=== PATIENT | female | born 1975 | race Caucasian/White ===

== ENCOUNTER → 2018-09-11 11:45 | Outpatient (CLI) | payer OTHER, MEDICAID, SELFPAY ==
[2018-09-11 13:31] LABS: Add Manual Diff / Slide Review NO; Basophils Percent Auto 0.7 % (0-2); Eosinophils Percent Auto 1.6 % (2-4); Hemoglobin 9.8 g/dL (12.0-16.0); Lymphocytes Percent Auto 17.6 % (25-40); Mean Corpuscular HGB Conc 32.6 % (30-36); Mean Corpuscular Hemoglobin 27.1 PG (26-34); Mean Corpuscular Volume 83.4 fL (80-100); Monocytes Percent Auto 5.7 % (3-14); Neutrophils Absolute Auto 8200 /uL (3000-5900); Neutrophils Percent Auto 74.4 % (50-75); Platelet Count 523 X10^3/uL (150-400); Red Cell Distribution Width 16.3 % (11.6-14.8)
[2018-09-11 13:34] LABS: Appearance Urine UA SL CLOUDY; Bilirubin Urine UA NEGATIVE (NEGATIVE); Color Urine UA YELLOW; Glucose Urine UA NEGATIVE (Normal); Ketones Urine UA TRACE (NEGATIVE); Leukocyte Esterase Urine UA NEGATIVE (NEGATIVE); Nitrite Urine UA NEGATIVE (Negative); Occult Blood Urine UA 2+ (Negative); Protein Urine UA TRACE (Negative); Specific Gravity Urine UA 1.025 (1.000-1.035); Urobilinogen Urine UA 0.2 E.U./dL (0.2); pH Urine UA 5.5 (4.5-8.0)
[2018-09-11 13:42] LABS: RBC Urine 5-10/HPF (0-5/HPF); Squamous Epithelial Cell Urine 1-5 /HPF; WBC Urine 1-5/HPF (0-5/HPF)
[2018-09-11 13:43] LABS: Bacteria Urine Few (2-10); Mucus Urine 2+ (Negative); Transitional Epi Cells Urine 0-1/HPF (0-5/HPF)
[2018-09-11 13:55] LABS: C-Reactive Protein Quant 7.9 mg/dL (<1.0); Creatine Kinase < 20 U/L (30-135); Uric Acid 3.9 mg/dL (2.5-6.2)
[2018-09-11 14:35] LABS: Alanine Aminotransferase 19 IU/L (9-52); Albumin 3.9 g/dL (3.5-5.0); Albumin Globulin Ratio 0.8 (1.0-2.8); Alkaline Phosphatase 145 U/L (38-126); Aspartate Aminotransferase 17 IU/L (14-36); BUN Creatinine Ratio 18.6 (6-22); Bilirubin Total 0.5 mg/dL (0.2-1.3); Blood Urea Nitrogen 13 mg/dL (7-17); Calcium 9.8 mg/dL (8.4-10.2); Carbon Dioxide 28 mmol/L (22-32); Chloride 97 mmol/L (98-107); Estimated Glomerular Filt Rate > 60.0 mL/min (>60); Globulin 5.1 g/dL (1.7-4.1); Glucose 91 mg/dL (70-100); HEMOLYSIS < 15 (0-50); Potassium 4.2 mmol/L (3.4-5.1); Sodium 142 mmol/L (137-145)
[2018-09-13 17:07] LABS: Myoglobin Quantitative Urine < 28 mcg/L (< 28)
== END ==
PROVIDERS: Family Medicine; Visit Provider Physician Assistant Medical
DX: R52 Pain, unspecified (principal); R07.9 Chest pain, unspecified; M62.830 Muscle spasm of back
CPT/HCPCS: 36415; 80053; 81001; 82550; 83874; 84100; 84550; 85025; 86140

== ENCOUNTER 2019-12-30 17:06 | Emergency (ER) | payer OTHER, MEDICAID, SELFPAY ==
[2019-12-30 17:10] VITALS: BP 130/87; PULSE 100; RESP 16; TEMP 36.7; O2SAT 100; BMI 25.7
--- NOTE | 2019-12-30 17:17 | DI.RAD.S_ITS ---
PROCEDURE: XR HIP W PEL IF DONE RT 2V INDICATIONS: hit right hip with door, has had hip replaced TECHNIQUE: AP pelvis and lateral view of the right hip acquired. COMPARISON: None. FINDINGS: Bones: Patient is status post right hip arthroplasty, with hardware components in expected positions. The hip joint appears congruent. The visualized bony structures appear intact. Soft tissues: Overlying postoperative changes are noted. No suspicious soft tissue densities. IMPRESSION: Expected appearance of right hip arthroplasty. Dictated by: Valerie Longoria M.D. on 12/30/2019 at 16:29 Approved by: Valerie Longoria M.D. on 12/30/2019 at 16:30
--- NOTE | 2019-12-30 19:58 | ED.LOWEXIN ---
HPI - Extremity Injury (Lower) <MARKEL Johnson - Last Filed: 12/30/19 23:53> General Chief Complaint: Extremity Injury, Lower Stated Complaint: right hip pain Time Seen by Provider: 12/30/19 19:48 Mode of arrival: Ambulatory Related Data Previous Rx's Medication Instructions Recorded doxycycline hyclate 100 mg PO BID 10 Days #20 tab 12/30/19 Allergies Allergy/AdvReac Type Severity Reaction Status Date / Time prednisone Allergy Severe Muscle Pain Verified 12/30/19 17:16 Patient History <MARKEL Johnson - Last Filed: 12/30/19 23:53> Medical History Deficient knowledge of open reduction and internal (ORIF) fixation of hip (Acute) History of intravenous drug use in remission (Acute) Social History Smoking Status: Current every day smoker Smoking Status: Current every day smoker tobacco type: cigarettes Substance Use Type: heroin Exam <MARKEL Johnson - Last Filed: 12/30/19 23:53> Initial Vital Signs Initial Vital Signs: Vital Signs Temperature 98.0 F 12/30/19 17:10 Pulse Rate 100 H 12/30/19 17:10 Respiratory Rate 16 12/30/19 17:10 Blood Pressure 130/87 12/30/19 17:10 Pulse Oximetry 100 12/30/19 17:10 <Adria Beverly MD - Last Filed: 12/31/19 06:52> Initial Vital Signs Initial Vital Signs: Vital Signs Temperature 98.0 F 12/30/19 17:10 Pulse Rate 100 H 12/30/19 17:10 Respiratory Rate 16 12/30/19 17:10 Blood Pressure 130/87 12/30/19 17:10 Pulse Oximetry 100 12/30/19 17:10 Course <MARKEL Johnson - Last Filed: 12/30/19 23:53> Orders Ordered: Discontinued Medications Hydrocodone Bitart/Acetaminophen ([place]mile 5/325) 1 tab PO NOW ONE Stop: 12/30/19 20:31 Last Admin: 12/30/19 20:38 Dose: 1 tab Documented by: MERCEDES Doxycycline Hyclate (Vibramycin) 100 mg PO NOW ONE Stop: 12/30/19 23:29 Last Admin: 12/30/19 23:35 Dose: 100 mg Documented by: MERCEDES Hydromorphone HCl (Dilaudid) 1 mg IM NOW ONE Stop: 12/30/19 20:55 Last Admin: 12/30/19 20:59 Dose: 1 mg Documented by: MERCEDES Sodium Chloride (Normal Saline 0.9%) 1,000 mls @ 150 mls/hr IV CONT MARIBELL Ibuprofen (Advil) 800 mg PO NOW ONE Stop: 12/30/19 23:29 Last Admin: 12/30/19 23:35 Dose: 800 mg Documented by: MERCEDES Lidocaine HCl (Xylocaine 1% (Pf)) 8 ml SUBCUT NOW ONE Stop: 12/30/19 21:09 Ondansetron HCl (Zofran Odt) 4 mg SL NOW ONE Stop: 12/30/19 20:31 Last Admin: 12/30/19 20:38 Dose: 4 mg Documented by: MERCEDES Vital Signs Vital signs: Vital Signs - 8 hr 12/31/19 00:02 Pulse Rate 86 Respiratory Rate 20 Blood Pressure 104/70 Pulse Oximetry 96 <Adria Beverly MD - Last Filed: 12/31/19 06:52> Orders Ordered: Discontinued Medications Hydrocodone Bitart/Acetaminophen ([place] 5/325) 1 tab PO NOW ONE Stop: 12/30/19 20:31 Last Admin: 12/30/19 20:38 Dose: 1 tab Documented by: MERCEDES Doxycycline Hyclate (Vibramycin) 100 mg PO NOW ONE Stop: 12/30/19 23:29 Last Admin: 12/30/19 23:35 Dose: 100 mg Documented by: MERCEDES Hydromorphone HCl (Dilaudid) 1 mg IM NOW ONE Stop: 12/30/19 20:55 Last Admin: 12/30/19 20:59 Dose: 1 mg Documented by: MERCEDES Sodium Chloride (Normal Saline 0.9%) 1,000 mls @ 150 mls/hr IV CONT MARIBELL Ibuprofen (Advil) 800 mg PO NOW ONE Stop: 12/30/19 23:29 Last Admin: 12/30/19 23:35 Dose: 800 mg Documented by: MERCEDES Lidocaine HCl (Xylocaine 1% (Pf)) 8 ml SUBCUT NOW ONE Stop: 12/30/19 21:09 Ondansetron HCl (Zofran Odt) 4 mg SL NOW ONE Stop: 12/30/19 20:31 Last Admin: 12/30/19 20:38 Dose: 4 mg Documented by: MERCEDES Vital Signs Vital signs: Vital Signs - 8 hr 12/31/19 00:02 Pulse Rate 86 Respiratory Rate 20 Blood Pressure 104/70 Pulse Oximetry 96 MDM - Extremity Injury (Lower) <MARKEL Johnson - Last Filed: 12/30/19 23:53> MDM Narrative Medical decision making narrative: This patient has been assessed and treated by Dr. Beverly after I briefly contacted the patient face to face initially and had ordered blood tests and medications. Discharge Plan Departure Patient Disposition: Home Clinical Impression: Abscess, Cellulitis of hip, right Discharge Date/Time: 12/31/19 00:02 Instructions: DI for Skin Abscess Activity Restrictions/Additional Instructions: Advil 3 tablets every 6 hours as needed for pain. Doxycycline 2 times daily as prescribed. This is the antibiotic. Apply warm compresses over the site frequently. You may also shower. Change the bandages as needed. Follow-up with a physician here home in 3-4 days for a wound check, return here if necessary. Prescriptions: New doxycycline hyclate 100 mg tablet 100 mg PO BID 10 Days Qty: 20 RF: 0
[2019-12-30] MEDS: HYDROCODONE/ACET 5/325 TABLET 1 TAB PO (20:38)
[2019-12-30] MEDS: ONDANSETRON 4 MG ODT SL (20:38)
[2019-12-30] MEDS: HYDROMORPHONE 1 MG INJ IM (20:59)
--- NOTE | 2019-12-30 21:01 | PC.NURSE ---
Unable to obtain piv with US assist, provider aware
--- NOTE | 2019-12-30 21:12 | DI.CT.S_ITS ---
PROCEDURE: CT PEL WO CON INDICATIONS: Abscess over the right hip. Prior right hip ORIF TECHNIQUE: Noncontrast 3 mm axial sections acquired through the bony pelvis, with coronal and sagittal reformatting. COMPARISON: [facility], CR, XR HIP 2 VIEWS WITH OR WITHOUT AP PELVIS RIGHT, 08/07/2018, 9:06. [facility], CR, XR HIP W PEL IF DONE RT 2V, 12/30/2019, 17:14. FINDINGS: Image quality: There is mild streak artifact seen associated with the right hip arthroplasty, which is greatly reduced with metal subtraction algorithm. Bones: There is arthroplasty hardware. No displaced fractures are seen. No suspicious lytic or blastic lesions are seen. There is partial visualization of lumbosacral fixation hardware. Soft tissues: Along the posterolateral aspect of the right hip, there is a soft tissue fluid collection seen that measures 5.4 x 2.2 cm in greatest axial dimensions, with a craniocaudal extent of 5.6 cm, with internal density of 18 Hounsfield units. Mild surrounding inflammatory changes are seen. Mildly prominent right groin lymph nodes are seen. IMPRESSION: These imaging findings are consistent with a given history of a soft tissue abscess overlying the right hip. Prominent right groin lymph nodes are seen. Right hip arthroplasty hardware. Lumbosacral fixation hardware is seen. Dictated by: Shen Rivera M.D. on 12/30/2019 at 22:01 Approved by: Shen Rivera M.D. on 12/30/2019 at 22:05
--- NOTE | 2019-12-30 21:13 | ED.LOWEXIN ---
HPI - Extremity Injury (Lower) General Chief Complaint: Extremity Injury, Lower Stated Complaint: right hip pain Time Seen by Provider: 12/30/19 19:48 Source: patient Mode of arrival: Ambulatory Limitations: no limitations History of Present Illness HPI Narrative: The patient presents with a draining abscess over her right lateral hip. She has had an infection that site for over 4 weeks. She was previously see at an outlying hospital, and started on Bactrim DS. The area of erythema has not improved with the Bactrim. She bumped her right hip against a car door earlier today, she started draining from the site. There has not been any significant spread of erythema to site all past 4 weeks. She denies fever or chills. She has a history of IV drug abuse. She has a history of right hip ORIF 11 years ago at [place], [place]. Related Data Previous Rx's Medication Instructions Recorded doxycycline hyclate 100 mg PO BID 10 Days #20 tab 12/30/19 Allergies Allergy/AdvReac Type Severity Reaction Status Date / Time prednisone Allergy Severe Muscle Pain Verified 12/30/19 17:16 Review of Systems Constitutional Constitutional: Denies body ache(s), Denies chills and Denies fever(s) Musculoskeletal Comments: Right hip pain or swelling. Integumentary/Breasts Comments: Right lateral thigh cellulitis with abscess. No other skin lesions. Neurologic Comments: No right leg numbness or weakness Patient History Medical History Deficient knowledge of open reduction and internal (ORIF) fixation of hip (Acute) History of intravenous drug use in remission (Acute) Social History Smoking Status: Current every day smoker Smoking Status: Current every day smoker tobacco type: cigarettes Substance Use Type: heroin Exam Initial Vital Signs Initial Vital Signs: Vital Signs Temperature 98.0 F 12/30/19 17:10 Pulse Rate 100 H 12/30/19 17:10 Respiratory Rate 16 12/30/19 17:10 Blood Pressure 130/87 12/30/19 17:10 Pulse Oximetry 100 12/30/19 17:10 Skin Other: No skin lesions other than that noted on the right lateral thigh. Extrem Other: 25 x 15 cm of erythema over the right lateral hip. There 3 immobilize the surgical site. There is a abscess along the surgical site with a 3 cm area of induration with fluctuance. The abscess is already draining. The right leg is otherwise normal, there is no edema in the lower leg. The right dorsalis pedis pulse is normal. Procedures Abscess I/D I&D #1: Site: lower extremity Side (if applicable): right (Lateral upper thigh) Amount of anesthesia used (mL): 8 Technique: incised with #11 blade Amount of fluid expressed (mL): 6 Irrigation: Yes Packing used?: iodoform Course Orders Ordered: ED Orders 12/30/19 17:17 XR hip w pel if done RT 2V Stat 12/30/19 19:58 Blood Culture Stat C-Reactive Protein Quant Stat Complete Blood Count AUTO DIFF Stat Comprehensive Metabolic Panel Stat Erythrocyte Sedimentation Rate Stat Lactate (Lactic Acid) Stat Procalcitonin Stat 12/30/19 20:00 Wound Culture and Gram Stain Stat 12/30/19 21:12 CT pelvis wo con Stat Sodium Chloride (Normal Saline 0.9%) 1,000 mls @ 150 mls/hr IV CONT MARIBELL Discontinued Medications Hydrocodone Bitart/Acetaminophen ([place] 5/325) 1 tab PO NOW ONE Stop: 12/30/19 20:31 Last Admin: 12/30/19 20:38 Dose: 1 tab Documented by: MERCEDES Hydromorphone HCl (Dilaudid) 1 mg IM NOW ONE Stop: 12/30/19 20:55 Last Admin: 12/30/19 20:59 Dose: 1 mg Documented by: MERCEDES Lidocaine HCl (Xylocaine 1% (Pf)) 8 ml SUBCUT NOW ONE Stop: 12/30/19 21:09 Ondansetron HCl (Zofran Odt) 4 mg SL NOW ONE Stop: 12/30/19 20:31 Last Admin: 12/30/19 20:38 Dose: 4 mg Documented by: MERCEDES Vital Signs Vital signs: Vital Signs - 8 hr 12/30/19 17:10 Temperature 98.0 F Pulse Rate 100 H Respiratory Rate 16 Blood Pressure 130/87 Pulse Oximetry 100 MDM - Extremity Injury (Lower) Imaging Data Pelvis CT: Radiologist's Impression: 25 x 15 cm area of erythema over the right lateral thigh. She has an area of fluctuance and induration in the proximal portion of the erythema. There is purulent drainage from the central part of the abscess. The draining abscesses is along the surgical line from her prior ORIF. Three major of the right leg is unaffected. There is no erythema or edema in the lower leg. Right hip x-ray: Radiologist's Impression: Normal postop findings. Discharge Plan Departure Patient Disposition: Home Clinical Impression: Abscess, Cellulitis of hip, right Instructions: DI for Skin Abscess Activity Restrictions/Additional Instructions: Advil 3 tablets every 6 hours as needed for pain. Doxycycline 2 times daily as prescribed. This is the antibiotic. Apply warm compresses over the site frequently. You may also shower. Change the bandages as needed. Follow-up with a physician here home in 3-4 days for a wound check, return here if necessary. Prescriptions: New doxycycline hyclate 100 mg tablet 100 mg PO BID 10 Days Qty: 20 RF: 0
[2019-12-30] MEDS: DOXYCYCLINE HYCLATE 100 MG TABLET PO (23:35)
[2019-12-30] MEDS: IBUPROFEN 400 MG TABLET 800 MG PO (23:35)
[2019-12-31 00:02] VITALS: BP 104/70; PULSE 86; RESP 20; O2SAT 96
== END 2019-12-31 00:02 | disposition home or self-care (01) ==
PROVIDERS: Emergency Provider Emergency Medicine
DX: L03.115 Cellulitis of right lower limb (principal); L02.415 Cutaneous abscess of right lower limb
CPT/HCPCS: 10060; 72192; 73502; 87070; 87075; 87077; 87147; 87186; 87205; 96372; 99283; 99284; J1170